=== PATIENT | male | born 1980 | race African-American/Black ===

== ENCOUNTER 2017-10-18 03:19 | Emergency (ER) | payer MEDICAID ==
[~2017-10-18] VITALS: Ht 177.8 cm; Wt 79.4 kg
[2017-10-18] MEDS ORDERED: ATRIPLA TABLET1 EAC1 ORAL (03:29)
[2017-10-18] MEDS ORDERED: NORVASC10 MG ORAL (03:29)
[2017-10-18] MEDS ORDERED: BACTRIM DS TAB1 EAC1 ORAL (03:29)
--- NOTE | 2017-10-18 03:41 | Emergency Room Report ---
History of Present Illness General Chief Complaint: Male Urogenital Problems Source: Patient Present Illness [facility] This is a 37-year-old male with a history HIV. He presents with chief complaint of left testicular pain. Onset was 3 days ago. No trauma. Left testicle swell up and causing some pain. It went down yesterday but never completely. This morning around 2 AM had severe pain that woke him up. No fever or chills. No nausea no vomiting. No discharge. No dysuria frequency. Allergies: Coded Allergies: No Known Allergies (Unverified , 10/18/17) Patient History Past Medical History: see triage record, old chart reviewed, HIV Past Surgical History: none Pertinent Family History: none Social History: Denies: smoking Immunizations: other Reviewed Nursing Documentation: PMH: Agreed, PSxH: Agreed Nursing Documentation-PMH Past Medical History: No History, Except For Hx Hypertension: Yes Review of Systems Eye: Denies: eye pain, blurred vision ENT: Denies: ear pain, nose congestion, throat swelling Respiratory: Denies: cough, shortness of breath Cardiovascular: Denies: chest pain, palpitations Gastrointestinal: Denies: abdominal pain, diarrhea, nausea, vomiting Genitourinary: Reports: pain Musculoskeletal: Denies: back pain, joint pain Skin: Denies: rash Neurological: Denies: headache, numbness Endocrine: Denies: increased thirst, increased urine Hematologic/Lymphatic: Denies: easy bruising All Other Systems: negative except mentioned in HPI Physical Exam Vital Signs Date Time Temp Pulse Resp B/P (MAP) Pulse Ox O2 Delivery O2 Flow Rate FiO2 10/18/17 03:24 99.5 91 20 163/81 99 Room Air vitals with high blood pressure Sp02 EP Interpretation: reviewed, normal General Appearance: well appearing, no apparent distress, alert Head: normocephalic, atraumatic Eyes: bilateral eye PERRL, bilateral eye EOMI ENT: hearing grossly normal, normal pharynx Neck: full range of motion, supple, no meningismus Respiratory: chest non-tender, lungs clear, normal breath sounds Cardiovascular #1: regular rate, rhythm, no murmur Gastrointestinal: normal bowel sounds, non tender, no mass, no organomegaly, no bruit, non-distended Genitourinary: other - There is edema to the left testicle. No torsion. There is tenderness along the epididymis. Good cremasteric effect. Musculoskeletal: back normal, gait/station normal, normal range of motion Neurologic: alert, oriented x3 Psychiatric: mood/affect normal Skin: warm/dry Medical Decision Making Diagnostic Impression: Primary Impression: Epididymitis, left ER Course This patient presents with a epididymitis. Put him on antibiotics. No abscess. No torsion. CT/MRI/US Diagnostic Results CT/MRI/US Diagnostic Results : Imaging Test Ordered: Testicular ultrasound Impression no torsion. Good blood flow. Increase flow to left epidimysis. Read by gui developer Last Vital Signs Date Time Temp Pulse Resp B/P (MAP) Pulse Ox O2 Delivery O2 Flow Rate FiO2 10/18/17 03:24 99.5 91 20 163/81 99 Room Air Status: improved Disposition: HOME, SELF-CARE Condition: Stable Scripts Doxycycline Monohydrate* (DOXYCYCLINE MONOHYDRATE*) 100 Mg Capsule 100 MG ORAL Q12H, #14 CAP 0 Refills Prov: JESSE PATHAK M.D. 10/18/17 Ibuprofen* (MOTRIN*) 600 Mg Tablet 600 MG ORAL THREE TIMES A DAY, #30 TAB 0 Refills Prov: JESSE PATHAK M.D. 10/18/17 Patient Instructions: Epididymitis Additional Instructions: Followup with your DrJeremias in 7 days. If not better you will need a referral to see a urologist. Return if symptom worsen. JESSE PATHAK M.D. Oct 18, 2017 03:41
[2017-10-18] MEDS ORDERED: Norco 5mg/325mg tab ORAL ONE (03:45)
[2017-10-18 03:48] LABS: BILIRUBIN, URINE NEGATIVE (NEGATIVE); GLUCOSE, URINE (UA) NEGATIVE (NEGATIVE); KETONES,URINE NEGATIVE (NEGATIVE); LEUKOCYTE ESTERASE ,URINE 3+ (NEGATIVE); NITRITE,URINE NEGATIVE (NEGATIVE); PH,URINE 5 (4.5-8.0); PROTEIN,URINE 1+ (NEGATIVE); UROBILINOGEN,URINE 1 MG/DL (0.0-1.0)
[2017-10-18 03:58] LABS: APPEARANCE,URINE SLIGHTLY CLOUDY; COLOR,URINE YELLOW
[2017-10-18] MEDS ORDERED: IBUPROFEN600 MG ORAL (04:30)
[2017-10-18] MEDS ORDERED: DOXYCYCLINE MO100 MG ORAL (04:30)
[2017-10-18 04:36] VITALS: BP_SYST 152; BP_SYST 163; BP_DIAS 81; BP_DIAS 83
--- NOTE | 2017-10-18 14:17 | Diagnostic Imaging Report ---
Indication:Scrotal pain Technique: Real time grayscale and duplex Doppler imaging of the scrotum performed. Comparison: None Findings: The size, contour, and echogenicitiy of the testis appear normal bilaterally. Right testis is 4.2 x 2.3 x 2.9 cm. Left testis 3.7 x 2.6 x 3.1 cm. There is no testicular mass or evidence of torsion. There is suggestion of a small left varicocele which increases flow on Valsalva. There is a small right hydrocele. There is good doppler evidence of blood flow within both testes. Epididimi are unremarkable. Impression: No testicular torsion or mass identified Small right hydrocele Small left varicocele
== END 2017-10-18 04:44 | disposition home or self-care (01) ==
LOC: EMR 03:25
DX: N45.1 Epididymitis (principal); I10 Essential (primary) hypertension
CPT/HCPCS: 76870; 81003; 87086; 99284